=== PATIENT | female | born 1960 | race Caucasian/White ===

== ENCOUNTER 2024-09-21 22:49 | Emergency (ER) | payer BC, SELFPAY ==
[2024-09-21 22:54] VITALS: BP 105/56
[2024-09-21 23:46] VITALS: BP 104/56
[2024-09-21 23:52] VITALS: BMI 21.3
--- NOTE | 2024-09-21 23:57 | EDRN ---
Pt walking home and got the heel of her shoe caught in a hole in the side walk. Pt fell onto her knees then her hands. Pt got up, felt very dizzy from pain in her R 4th finger and fell again. Pt was assisted up and again fell. says this
happened three times after the initial fall. Pt sustained abrasions to b/l knees and has pain. Pain noted in R 4th finger but pt says that pain has improved. Pt feels sore all over.
--- NOTE | 2024-09-21 23:57 | ED.GENMED ---
History of Present Illness
<NILSA Diaz - Last Filed: 09/22/24 04:51>
General
Chief Complaint: Fainting/Passed Out
Source: patient and significant other ( )
Time Seen by Provider: 09/21/24 23:56
Nursing documentation reviewed up to this point in time: agreed with
History of Present Illness
History of Present Illness:
a 63 yo female with a PMH of HLD, heart murmur presented to the ED for a falling x 4 of which she doesn't remember the last 3 falls. She stated that her and her were walking home from an event when she accidentally stepped into a large pot
hole and fell on her knees and hands. She specifically states her right hand and fingers 'pushed backwards' in hyperextension. She states that she then slowly got up and began walking again when suddenly she experienced exam right 4th finger 10/10
pain which radiated up her arm caused her to become nauseous and feeling like she wanted to vomit. She then states that she crumbled and fell to the side and doesn't quite remember what happened or what she might of hit on the way down. The
stated that it happened so quickly that he couldn't rule out wether or not she had hit her head. The states that she fell 2 more time to which prompted him to call the EMS. She states that her current pain level is mild. The patient stated
that she is unaware of the last 2 falls. She also complains of mild diffuse cervical neck pain, but denies any reduced range of motion. She denies any dizziness, N/V, weakness leading up to the fall. She currently denies N/V, paresthesia, Chest
pain, shortness or breath, vision changes.
She has a PMH of HLD and heart murmur. She denies a PMH of stroke, or any other neurological conditions. She has a FH of stroke d/t anerysm on mother side. She admits to drinking 2 drinks over the course 5 hours.
Past History
<NILSA Diaz - Last Filed: 09/22/24 04:51>
Past History
ED Past Medical History: Hypercholesterolemia
ED Past Surgical History: Other (R knee)
Social History
Tobacco: Non-smoker
Alcohol: Occasional
Drug: None
Family History
Family History: Other (hemorrhagic stroke)
Review of Systems
<Shaan Bedoya [facility] - Last Filed: 09/22/24 04:51>
Review of Systems
Allergies reviewed?: Yes
All Other Systems: ROS reviewed and negative except as documented in HPI and ROS
Phy Exam
<Shaan Bedoya [facility] - Last Filed: 09/22/24 04:51>
General Physical Exam
General Presentation: well appearing and no apparent distress
General age: appears stated age
General Skin: warm and dry
General Habitus: normal
General Mental: alert
Eye Exam
Eye Exam: PERRL and EOMI
Cardiovascular Exam
Cardiovascular Exam: regular rate/rhythm, no edema, no gallop, normal peripheral pulses and systolic murmur
Pulmonary Exam
Pulmonary Exam: lungs clear, no respiratory distress, no rales, no crackles, no rhonchi, no wheezing and no cough
Neurological Exam
Neurological Exam: alert, oriented x3, no motor deficits and speech normal
NIH Stroke Score
Level of Consciousness: 0 - Alert
LOC questions: 0-Answers both correctly
LOC Commands: 0-Performs both correctly
Best Gaze: 0-Normal
Visual Bautista: 0=Normal, no visual loss
Facial palsy: 0=Normal, symmetrical
Motor - Right Arm: 0=No drift 10 seconds
Motor - Left Arm: 0=No drift 10 seconds
Motor - Right Le-No drift 5 seconds
Motor - Left Le-No drift 5 seconds
Limb Ataxia: 0-Absent
Sensation: 0-Normal
Best Language: 0-No aphasia
Dysarthria: 0-Normal
Extinction and Inattention: 0-No abnormality
Total Score:: 0
Musculoskeletal Exam
Musculoskeletal Exam: neck pain (however, no TTP of cervical spinal processes), joint swelling (R 4th digit POP joint swelling, ecchymosis ) and neuro vasc intact
<Soha Mendoza MD - Last Filed: 09/22/24 01:49>
NIH Stroke Score
Total Score:: 0
Course
<NILSA Diaz - Last Filed: 09/22/24 04:51>
Orders/Labs/Results
Orders:
Orders
09/22/24 00:00
CR Hand - Right Min 3 Views Urgent
Reason For Exam: injury
09/22/24 00:44
EKG [Electrocardiogram (*1)] Urgent
Reason for Study: Syncope
09/22/24 01:00
CBC/With Diff [Complete Blood Count/With Diff] Urgent
CMP [Comprehensive Metabolic Panel] Urgent
09/22/24 01:39
CT Head W/o Iv Contrast Urgent
Comment:
Reason For Exam: syncope
09/22/24 04:36
Splint [Braces/Immobilizers] As Directed
Type of Brace/Immobilizer: Other
Other brace/immobilizer: finger splint
Location for Brace/Immobilizer: R 4th and 5th finger splint
Abnormal Lab Results
09/22/24
01:00
WBC 11.9 H 10^3/uL
(4.8-10.8)
MCH 31.3 H pg
(27.0-31.0)
Abs Immat Gran (auto) 0.1 H 10^3/uL
(0-0.05)
Absolute Neuts (auto) 10.5 H 10^3/uL
(1.4-6.5)
Absolute Lymphs (auto) 0.8 L 10^3/uL
(1.2-3.4)
Immature Gran % 0.8 H %
(0-0.5)
Neutrophils % 88.0 H %
(42.2-75.2)
Lymphocytes % 6.5 L %
(20.5-51.1)
Glucose 106 H mg/dl
(70-99)
09/22/24 01:00
09/22/24 01:00
Vital Signs
Initial and Last Documented VS:
Initial Vital Signs
Temp Pulse Resp BP Pulse Ox
98.4 F 52 16 105/56 98
09/21/24 22:54 09/21/24 22:54 09/21/24 22:54 09/21/24 22:54 09/21/24 22:54
Last Documented Vital Signs
Temp Pulse Resp BP Pulse Ox
98.4 F 56 18 104/57 98
09/21/24 22:54 09/22/24 03:00 09/22/24 03:00 09/22/24 03:00 09/21/24 22:54
<Soha Mendoza MD - Last Filed: 09/22/24 01:49>
Orders/Labs/Results
Orders:
Orders
09/22/24 00:00
CR Hand - Right Min 3 Views Urgent
Reason For Exam: injury
09/22/24 00:44
EKG [Electrocardiogram (*1)] Urgent
Reason for Study: Syncope
09/22/24 01:00
CBC/With Diff [Complete Blood Count/With Diff] Urgent
CMP [Comprehensive Metabolic Panel] Urgent
09/22/24 01:39
CT Head W/o Iv Contrast Urgent
Comment:
Reason For Exam: syncope
09/22/24 04:36
Splint [Braces/Immobilizers] As Directed
Type of Brace/Immobilizer: Other
Other brace/immobilizer: finger splint
Location for Brace/Immobilizer: R 4th and 5th finger splint
Abnormal Lab Results
09/22/24
01:00
WBC 11.9 H 10^3/uL
(4.8-10.8)
MCH 31.3 H pg
(27.0-31.0)
Abs Immat Gran (auto) 0.1 H 10^3/uL
(0-0.05)
Absolute Neuts (auto) 10.5 H 10^3/uL
(1.4-6.5)
Absolute Lymphs (auto) 0.8 L 10^3/uL
(1.2-3.4)
Immature Gran % 0.8 H %
(0-0.5)
Neutrophils % 88.0 H %
(42.2-75.2)
Lymphocytes % 6.5 L %
(20.5-51.1)
Glucose 106 H mg/dl
(70-99)
09/22/24 01:00
09/22/24 01:00
Vital Signs
Initial and Last Documented VS:
Initial Vital Signs
Temp Pulse Resp BP Pulse Ox
98.4 F 52 16 105/56 98
09/21/24 22:54 09/21/24 22:54 09/21/24 22:54 09/21/24 22:54 09/21/24 22:54
Last Documented Vital Signs
Temp Pulse Resp BP Pulse Ox
98.4 F 56 18 104/57 98
09/21/24 22:54 09/22/24 03:00 09/22/24 03:00 09/22/24 03:00 09/21/24 22:54
<NILSA Diaz - Last Filed: 09/22/24 04:51>
MDM/Problems Addressed
Differential Diagnosis Includes:
syncopal episode due to pain, afib, stroke, anemia, electrolyte abnormality
MDM/Problems Addressed:
Stroke was considered in the differential, but the patient demonstrated no focal motor or sensory defects in the UE or LE. No facial droop and full strength in UE and LE. Eyes were PERRL and EOMI were fully intact. Her head was non TTP. The patient
admitted to one episode of nausea shortly after hitting her hand, but did not experience any vomiting or subsequent nausea. She admitted to some neck tenderness, but upon palpation she demonstrated no pain. Patient demonstrated full cervical ROM
laterally. [place] Nexus C-spine criteria was 0/5 which helped me determine against any cervical imaging.
Afib was considered due to the nature of a syncopal like nature surrounding her fall. Her EKG showed normal sinus rhythm helping exclude atrial fibrillation as a cause of the episode.
Her chemistries demonstrated hyperglycemia was a blood glucose of 106 without any other electrolyte derangements.
Anemia was considered in the differential as a potential cause of her syncopal episode, but resulted in non specific mild lymphocytosis with neutrophilia.
Syncopal episode due to extreme pain was considered to be the most likely cause of the 2nd, 3rd, and 4th falls.
<NILSA Diaz - Last Filed: 09/22/24 04:51>
*Critical Care Note
Total Time (30-74mins, 75-104mins- exclusive of procedures): Not Applicable
ED Attending Note
<NILSA Diaz - Last Filed: 09/22/24 04:51>
-
Portions of this chart may have been created with voice recognition software.� Occasional wrong word or��sound alike� substitutions may have occurred due to the inherent limitations of voice recognition software.
<Soha Mendoza MD - Last Filed: 09/22/24 01:49>
ED Attending Note
Patient seen and examined by attending physician: Yes
I performed the substantive portion of visit, reviewed & personally made and approve the management plan that is documented in note by myself or DOMO.: Yes
I performed a history and physical exam of patient and discussed management with resident, I reviewed resident's note and agree with documented findings and plan of care.: Yes
ED Attending Note:
63-year-old female presents emergency department after a fall while walking back from a show at the [facility] theater. Her heel got caught an uneven pavement causing her to fall to the ground. She is not sure if she hit her head but there was
no loss of consciousness. However, she developed pain to the left hand which she describes as 10 out of 10. She got up and started to try to walk but felt great difficulty doing so because of such severe pain and felt like her legs 'crumbled'.
This happened 3 more times, never fully getting up and walking but rather trying to get up and then feeling such pain that she went down again. No tonic clonic activity, incontinence, tongue biting, confusion. At this time she has great discomfort
at the fourth digit on the right hand. She also notes superficial abrasions at the knees bilaterally, and believes that her tetanus is up-to-date. She has minimal neck discomfort, and on exam, Nexus criteria negative, no midline tenderness, no
neurological findings, no distracting injury, fully oriented. Patient denies preceding chest pain, palpitations, dyspnea, visual changes, or other complaints. Patient presents to the Emergency Department with ____fall/syncope
Number and Complexity of Problems Addressed at the Encounter
� Chronic conditions affecting care:
� Acute Exacerbation and/or Progression of Chronic Illness:
� Differential Diagnosis includes: But not limited to vasovagal events, superficial abrasion, hand fracture, etc. etc.
Amount and/or Complexity of Data to be Reviewed and Analyzed
� I performed an independent evaluation of and my interpretation is:
EKG: Read by me, normal sinus rhythm, normal rate, normal axis
CT:
Xrays: Fourth finger avulsion fracture noted.
Laboratory Studies: Nonspecific leukocytosis noted� No signs or symptoms to suggest impending infection such as fever, chills, sweats, cough, UTI symptoms, etc.
Other:
� Review of other/old records reveals:
� Clinical information was obtained by an independent historian: who is bedside and was a witness
� Prescriptions/Medications Considered but not given:
� Further testing considered but not performed:
Risk of Complications and/or Morbidity or Mortality of Patient Management
� Social determinants of health affecting care:
� Discussion with other providers (PCP, Hospitalists, Consultants, etc):
� Escalation of care including admission/observation vs risk of discharge considered:
Discharge Plan
Departure
Patient Disposition: Home (Routine Discharge)
Date of Disposition: 09/22/24
Time of Disposition: 04:26
Patient with high blood pressure during this ER visit?: No
Condition: Good
Discharge Problem:
Avulsion fracture of middle phalanx of finger
Instructions: Avulsion Fracture
Prescriptions:
No Action
pravastatin 20 mg Tablet
20 mg PO DAILY
cholecalciferol (vitamin D3) [Vitamin D3] 25 mcg (1,000 unit) Tablet
25 mcg PO DAILY
coQ10 (ubiquinol) 200 mg Capsule
200 mg PO DAILY
cyanocobalamin (vitamin B-12)
1 tab PO DAILY
Patient Comments:
pt does not know mg
Referrals:
Melvin Barraza MD [Active] - Next open appointment (R 4th avulsion fracture of proximal phalanx )
Beverly Rivers DO [Family Provider] -
Activity Restrictions/Additional Instructions:
IF NEW SWELLING, REDNESS, SEVERE PAIN, FEVER, TINGLING, FEELING IF YOUR FINGER IS EXTREMELY COLD, LOSS OF COLOR / PALENESS, GO TO THE ER IMMEDIATELY
Interventions
Interventions:
*Risk Screen - Suicide Last Done: 09/21/24 22:54
*General Assessment Last Done: 09/21/24 23:52
*Neglect/Abuse Screening Last Done: 09/21/24 22:54
ED- Fall Risk Assessment Last Done: 09/21/24 23:52
*ED COVID-19 Vaccine History Last Done: 09/21/24 22:54
ED- Cardiac Assessment Last Done: 09/21/24 23:52
ED- Neurological Assessment Last Done: 09/21/24 23:52
Discharge Date and Time
Print Language: PERSIAN
[2024-09-22] VITALS: BP 119/61
[2024-09-22 01:22] LABS: % Basophils 0.3 % (0-2); % Eosinophils 0.5 % (0-6); % Immature Granulocytes 0.8 % (0-0.5); % Lymphocytes 6.5 % (20.5-51.1); % Monocytes 3.9 % (1.7-9.3); Absolute Eosinophils 0.1 10^3/uL (0-0.7); Absolute Immature Granulocytes 0.1 10^3/uL (0-0.05); Absolute Lymphocytes 0.8 10^3/uL (1.2-3.4); Absolute Monocytes 0.5 10^3/uL (0.1-0.6); Absolute Neutrophils 10.5 10^3/uL (1.4-6.5); Hematocrit 37.8 % (37.0-47.0); Hemoglobin 13.2 g/dL (12.0-16.0); Mean Corp Hgb Conc. 34.9 g/dL (33.0-37.0); Mean Corpuscular Hgb 31.3 pg (27.0-31.0); Mean Corpuscular Volume 89.6 fL (81.0-99.0); Mean Platelet Volume 9.2 fL (7.4-10.4); Nucleated Red Blood Cells % 0 %; Platelet Count 196 10^3/uL (130-400); Red Blood Cell Count 4.22 10^6/uL (4.20-5.40); White Blood Cell Count 11.9 10^3/uL (4.8-10.8)
[2024-09-22 01:30] VITALS: BP 130/78
[2024-09-22 01:31] LABS: ALT (SGPT) 21 U/L (0-35); AST (SGOT) 35 U/L (14-36); Albumin 4.4 g/dl (3.5-5.0); Alkaline Phosphatase 65 U/L (38-126); Blood Urea Nitrogen 17 mg/dl (7-17); Calcium 9.3 mg/dl (8.4-10.2); Carbon Dioxide 24 mmol/L (22-30); Chloride 104 mmol/L (98-107); Estimated Creatinine Clearance 85 ml/min; Glucose 106 mg/dl (70-99); Potassium 4.1 mmol/L (3.5-5.1); Sodium 141 mmol/L (135-145); Total Bilirubin 0.6 mg/dl (0.2-1.3); Total Protein 6.7 g/dl (6.3-8.2); eGFR > 60.00
[2024-09-22 02:00] VITALS: BP 99/60
[2024-09-22 03:00] VITALS: BP 104/57
[2024-09-22 04:54] VITALS: BP 109/44
== END 2024-09-22 04:56 | disposition home or self-care (01) ==
LOC: EMR 22:49
PROVIDERS: EMERGENCY PHYSICIAN Emergency Medicine; FAMILY PHYSICIAN Family Medicine
DX: S62.624A Displaced fracture of middle phalanx of right ring finger, initial encounter for closed fracture (principal); S60.041A Contusion of right ring finger without damage to nail, initial encounter; S61.204A Unspecified open wound of right ring finger without damage to nail, initial encounter; S80.212A Abrasion, left knee, initial encounter; S80.211A Abrasion, right knee, initial encounter; R11.0 Nausea; M54.2 Cervicalgia; W17.2XXA Fall into hole, initial encounter; Y93.01 Activity, walking, marching and hiking; Y92.89 Other specified places as the place of occurrence of the external cause; R01.1 Cardiac murmur, unspecified; E78.00 Pure hypercholesterolemia, unspecified; R29.6 Repeated falls; Z91.013 Allergy to seafood
CPT/HCPCS: 99285; 29130; 70450; 73130; 80053; 85025; 93005